=== PATIENT | female | born 2000 | race Caucasian/White ===

== ENCOUNTER → 2025-03-08 | Outpatient (REF) | payer OTHER ==
[~2025-03-08] MED LIST: NITR100C3 PO
== END ==
LOC: M PLALAB 13:56
PROVIDERS: ATTEND Nurse Practitioner Family
DX: Z34.80 Encounter for supervision of other normal pregnancy, unspecified trimester (principal)

== ENCOUNTER → 2025-03-08 | Outpatient (CLI) | payer OTHER ==
[2025-03-08 15:10] LABS: PLATELET COUNT, AUTOMATED 326 10^3/uL (150-450)
[2025-03-08 16:10] LABS: Trichomonas vaginalis (AMP) NOT DETECTED (NEGATIVE)
[2025-03-08 16:16] LABS: HEPATITIS C VIRUS ABY INDEX < 0.02 INDEX (<0.8); HIV 1&2 SCREEN NEGATIVE (NEGATIVE)
[2025-03-08 16:33] LABS: GC DNA AMPLIFICATION NEGATIVE (NEGATIVE)
== END ==
LOC: M PLALAB 14:16
PROVIDERS: ATTEND Nurse Practitioner Family
DX: Z34.80 Encounter for supervision of other normal pregnancy, unspecified trimester (principal)

== ENCOUNTER 2025-03-09 18:49 | Emergency (ER) | payer OTHER ==
[~2025-03-09] VITALS: Ht 165.1 cm; Wt 84.1 kg
[2025-03-09] MEDS: GLYCERIN ADULT SUPP PR ONE (22:50)
[2025-03-10] MEDS: LIDOCAINE 2% 5 ML JELLY UROJET TOP ONE (00:55)
[2025-03-10 01:24] LABS: KETONE, URINE AUTO RFX 1+ mg/dL (NEGATIVE); LEUKOCYTE ESTERASE UR AUTO RFX NEGATIVE (NEGATIVE); MUCUS, URINE RFX SMALL (NEGATIVE); NITRITE, URINE AUTO RFX NEGATIVE (NEGATIVE); RBC, URINE AUTO RFX 1 /HPF (0-3); SQUAM EPITHELIAL CELL UR AURFX 0 /HPF (0-6); WBC, URINE AUTO RFX 0 /HPF (0-3)
[2025-03-10] MEDS ORDERED: NITR100C3 PO (01:53)
[2025-03-10 02:30] VITALS: BP 112/58; TEMP 98.5; O2SAT 97
[2025-03-10] MEDS: PHENAZOPYRIDINE 100 MG TAB PO ONE (02:39)
[2025-03-10] MEDS: NITROFURANTOIN 100 MG CAP PO ONE (02:39)
== END 2025-03-10 02:48 | disposition home or self-care (01) ==
LOC: M ED 18:49
DX: O23.41 Unspecified infection of urinary tract in pregnancy, first trimester (principal); O99.611 Diseases of the digestive system complicating pregnancy, first trimester; Z86.2 Personal history of diseases of the blood and blood-forming organs and certain disorders involving the immune mechanism